=== PATIENT | female | born 1970 ===

== ENCOUNTER 2018-07-07 08:24 | Emergency (ER) | payer OTHER ==
[2018-07-07 08:24] VITALS: BMI 36.3
[2018-07-07 08:32] VITALS: RESP 18; TEMP 97.8
--- NOTE | 2018-07-07 08:50 | ED PDOC ---
HPI: Skin/Bite Injury Time Seen by Provider: 07/07/18 08:30 History Per: Patient Onset/Duration Of Symptoms: Days (7) Current Symptoms Are (Timing): Still Present Location Of Injury: Right: Arm, Chest, Anterior: Chest Quality Of Symptoms: Itching Severity: Mild Additional Complaint(s): Itchy rash on right chest and right tricep x 1 week. Unknown allergen. No fever Denies tightness in throat or SOB Past Medical History Vital Signs: Last Vital Signs Temp 97.8 F 07/07/18 08:32 Pulse 67 07/07/18 08:32 Resp 18 07/07/18 08:32 BP 149/78 07/07/18 08:32 Pulse Ox 98 07/07/18 08:32 - Medical History PMH: No Chronic Diseases Denies: Chronic Kidney Disease - Family History Family History: States: Unknown Family Hx - Home Medications Home Medications: Ambulatory Orders Medication Instructions Recorded Naproxen [Naprosyn] 500 mg PO BID PRN #14 tablet 09/06/16 Ondansetron [Zofran] 4 mg PO Q6H PRN #10 tab 09/06/16 Cetirizine HCl [Zyrtec] 10 mg PO DAILY #10 capsule 07/07/18 Prednisone 50 mg PO DAILY #5 tab 07/07/18 - Allergies Allergies/Adverse Reactions: Allergies Allergy/AdvReac Type Severity Reaction Status Date / Time No Known Allergies Allergy Verified 09/08/16 12:09 Review of Systems Constitutional: Negative for: Fever Skin: Positive for: Rash Physical Exam - Physical Exam Appears: Positive for: Non-toxic, No Acute Distress Skin: Positive for: Rash (erythemetous rash right ant chest, upper breast. Macular papular rash right triceo) ENT: Positive for: Normal ENT Inspection Respiratory: Positive for: Normal Breath Sounds. Negative for: Respiratory Distress - ECG O2 Sat by Pulse Oximetry: 98 Disposition - Clinical Impression Clinical Impression: Dermatitis - Patient ED Disposition Is Patient to be Admitted: No Counseled Patient/Family Regarding: Diagnosis, Need For Followup, Rx Given - Disposition Referrals: Beck Killian MD [Staff Provider] - Disposition: Routine/Home Disposition Time: 08:52 Condition: FAIR Prescriptions: Cetirizine HCl [Zyrtec] 10 mg PO DAILY #10 capsule Prednisone 50 mg PO DAILY #5 tab Instructions: Dermatitis Print Language: ERITREAN
[2018-07-07 09:37] VITALS: BP 135/82; PULSE 75; O2SAT 99
== END 2018-07-07 09:37 | disposition home or self-care (01) ==
LOC: H.ER 08:24
DX: L30.9 Dermatitis, unspecified (principal)